=== PATIENT | male | born 2005 | race Two or more races ===

== ENCOUNTER 2024-04-02 11:57 | Emergency (ER) | payer OTHER ==
[~2024-04-02] VITALS: Ht 182.9 cm; Wt 59.0 kg
[2024-04-02 12:55] LABS: HEMATOCRIT 40.5 % (39.0-48.0); HEMOGLOBIN 14.3 g/dL (13-16.00); MEAN CELL VOLUME 83.7 fL (80.0-100.00); MEAN CORPUSCULAR HEMOGLOBIN 29.5 pg (27.00-32.0); MEAN CORPUSCULAR HGB CONC 35.3 g/dl (32.0-36.0); PLATELET COUNT 304 K/uL (150-450); RED BLOOD COUNT 4.84 M/uL (4.00-6.00); RED CELL DISTRIBUTION WIDTH 13.8 % (11.5-14.5)
== END 2024-04-02 13:51 | disposition home or self-care (01) ==
LOC: ER 11:58 → EMR PED 12:24 → ER 12:24 → EMR PED 13:51
PROVIDERS: Emergency Medicine Pediatric Emergency Medicine
DX: J06.9 Acute upper respiratory infection, unspecified (principal); J32.9 Chronic sinusitis, unspecified; Z20.822 Contact with and (suspected) exposure to COVID-19